=== PATIENT | male | born 1980 | race Caucasian/White ===

== ENCOUNTER 2016-07-10 12:41 | Emergency (ER) | payer BC, OTHER ==
--- NOTE | 2016-07-10 13:34 | ERNOTE ---
Abdominal HPI - General Chief Complaint: Abdominal Pain Time Seen by Provider: 07/10/16 13:31 Source: patient - Immun/Allergies/Home Medications Immunizatons: IMMUNIZATION HX Immunizations Up to Date Yes History of Influenza Vaccine Yes Hx Pneumococcal Vaccination No Allergies/Adverse Reactions: Allergies No Known Allergies Allergy (Verified 07/10/16 13:06) Home Medications: HOME MEDICATIONS HYDROcodone/ACETAMINOPHEN [[place] 5-325] 1 each PO Q4H #20 tablet 07/10/16 [Last Taken Unknown] Ondansetron [Zofran Odt] 4 mg PO Q6H PRN #20 tab 07/10/16 [Last Taken Unknown] Tamsulosin HCl [Flomax] 0.4 mg PO DAILY@1800 #7 capsule 07/10/16 [Last Taken Unknown] - History of Present Illness Narrative: Patient presents with left flank pain that radiates down into the left lower abdomen. He states that a similar to when he has had a previous kidney stone. He describes the pain as being somewhat crampy and places it at about a 6 or 7 out of 10. Timing: intermittent Quality: moderate, cramping Activities at Onset: none Associated Symptoms: Present: denies symptoms Prior Abdominal Problems: Present: similar symptoms - with a kidney stone Review of Systems - Review of Systems Constitutional: Present: See HPI EYE: Present: no symptoms reported ENT: Present: no symptoms reported Respiratory: Present: no symptoms reported Cardiology: Present: no symptoms reported Gastrointestinal/Abdominal: Present: no symptoms reported Genitourinary: Present: See HPI Musculoskeletal: Present: no symptoms reported Skin: Present: no symptoms reported Neurological: Present: no symptoms reported Endocrine: Present: no symptoms reported Hematologic/Lymphatic: Present: no symptoms reported Psych: Present: no symptoms reported - Patient's Past Medical History Patient History - Medical: Kidney stone Patient History - Cardiac/Respiratory: No pertinent hx Patient History - Cancer: No Hx of Cancer Patient History - Surgical Procedures: Other Patient History - Other: None - Social History Living Situations: spouse Abuse History: No History of abuse Psych History: No pertinent hx Smoking Status: Never smoker Have you smoked in the past 12 months: No Do you dip or chew tobacco: Yes Alcohol Use: occasionally Drug Use: none - Immunizations Immunizations Up to Date: Yes Hx Pneumococcal Vaccination: No History of Influenza Vaccine: Yes Physical Exam - Physical Exam General Appearance: Present: wd/wn, alert, moderate distress Eye Exam: Normal inspection: bilateral, PERRL: bilateral Ears, Nose, Throat: Present: normal ENT inspection, H, normal pharynx Neck: Present: normal inspection, nontender Respiratory: Present: no respiratory distress, normal breath sounds, no accessory muscle use, chest nontender, lungs clear Cardiovascular/Chest: Present: regular rate, rhythm, no murmur, normal peripheral pulses Gastrointestinal/Abdominal: Present: normal bowel sounds, nontender, nondistended, soft, no organomegaly Rectal Exam: Present: deferred Back Exam: Present: normal range of motion, CVA tenderness (L) Extremity Exam: Present: normal inspection, non-tender, no edema, normal range of motion Neurological Exam: Present: alert, oriented, normal mood/affect Skin Exam: Present: normal color, warm/dry Lymphatic Exam: Present: no adenopathy ED Progress - Results and Orders Patient's Lab Results:: I have reviewed the patient's lab results. - Vital Signs Patient's Vital Signs:: I have reviewed the patient's vital signs. Vital Signs: Vital Signs 07/10/16 07/10/16 13:00 13:07 Temperature 36.6 C 36.6 C Pulse Rate 62 62 Respiratory 18 18 Rate Blood Pressure 155/114 155/114 O2 Sat by Pulse 100 100 Oximetry - CT/Ultrasound CT/Ultrasound Narrative: CT results reviewed - Progress/Reassessment Chief Complaint: Abdominal Pain Progress:: Improved Plan - Plan Plan: Patient has a 2 mm stone in the distal UVJ area with mild left-sided hydroureter and hydronephrosis. Patient will be started on pain meds, antiemetics, and Flomax and he will follow up with his family physician this week and possibly urology if the stone does not clear. Departure - Departure Clinical Impression: Kidney stone on left side, Renal colic on left side Disposition: Home self-care Condition: Good Instructions: Renal Colic, [id number], Kidney Stones, [id number] Prescriptions: HYDROcodone/ACETAMINOPHEN [[place] 5-325] 1 each PO Q4H #20 tablet Ondansetron [Zofran Odt] 4 mg PO Q6H PRN #20 tab PRN Reason: Nausea And Vomiting Tamsulosin HCl [Flomax] 0.4 mg PO DAILY@1800 #7 capsule
[2016-07-10 13:37] LABS: Hematocrit 44.5 % (42.0-52.0); Hemoglobin 15.1 gm/dL (13.5-18.0); Mean Cell Volume 92.3 fl (78-100); Mean Corpuscular Hemoglobin 31.3 pg (27-31); Mean Corpuscular Hgb Conc 33.9 g/dl (32-36); Mean Platelet Volume 10.1 fl (6.0-9.5); Neutrophil # 5.9 K/mm3 (1.3-6.0); Neutrophil % 74.1 % (42-75.0); Platelet Count 243 K/mm3 (150-450); Red Blood Count 4.82 M/mm3 (4.7-6.0); Red Cell Distribution Width 12.6 % (11.5-14.0)
[2016-07-10] MEDS ORDERED: KETOROLAC TROMETHAMINE 30 MG/ML VIAL IM ONE (13:38)
[2016-07-10] MEDS ORDERED: KETOROLAC TROMETHAMINE 60 MG/2 ML VIAL IM ONE (13:38)
--- OUTSIDE RECORDS SUMMARY | 2016-07-10 13:42 | XMS REPORT | Continuity of Care Document ---
:1980 Author Organization [facility] [place] [address] Care Team Providers Name Role Phone Unavailable Primary Care Provider Unavailable Source Comments This disclosure is being made pursuant to the [facility] [employer] program and maynot contain all information available regarding this patient.[email or web address] Active Allergies and Adverse Reactions Not on File Current Medications Be aware that medications may not be up to date as of this document. Alwaysverify current medications with the patient. Not on file Active Problems Not on file Social History Tobacco Use Types Packs/Day Years Used Date Never Assessed Plan of Care Health Maintenance Due Date Last Done Comments Retired-Pertussis Vaccine Adult 1997 Retired-Tetanus Vaccine Adult 1997 Retired-INFLUENZA VACCINE 11/11/2014 Results from Last 3 Months Not on file
--- OUTSIDE RECORDS SUMMARY | 2016-07-10 13:42 | XMS REPORT | Continuity of Care Document ---
:1980 Author Organization [facility] ([facility]) [place] [address] Phone [phone] Care Team Providers Name Role Phone Provider, No-Primary Care Primary Care Provider Unavailable Source Comments This disclosure is being made pursuant to the Care Everywhere program, applicable federal and state laws, and may not contain all informaitonavailable regarding this patient.[facility] ([facility]) Active Allergies and Adverse Reactions No Known Allergies Current Medications Prescription Sig. Disp. Refills Start Date End Date Status fluticasone 50 Use 2 sprays in 16 g 6 12/23/2013 Active mcg/Actuation nasal each nostril daily. spray Indications: CHRONIC NON-ALLERGIC RHINITIS multivitamin tablet Take 1 Tab by mouth Active daily. nicotine 21-14-7 mg/24 Apply as directed 56 Patch 2 01/08/2015 Active hr transdermal patch accodring to kit package instructions. 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 Facial pain 12/23/2013 Nasal obstruction 12/23/2013 History of nasal septoplasty 12/23/2013 Immunizations Name Dates Previously Given Next Due Influenza, unspecified 01/11/2006 Social History Tobacco Use Types Packs/Day Years Used Date Never Smoker Smokeless Tobacco: Current User Chew Alcohol Use Drinks/Week oz/Week Comments Yes 1 Cans of beer Last Filed Vital Signs Vital Sign Reading Time Taken Blood Pressure 154/75 01/08/2015 10:10 AM CDT Pulse 70 01/08/2015 10:10 AM CDT Temperature 36.4 C (97.5 F) 01/08/2015 10:10 AM CDT Respiratory Rate 18 12/23/2013 8:14 AM CDT Height 1.829 m (6') 01/08/2015 10:10 AM CDT Weight 99 kg (218 lb 4.1 oz) 01/08/2015 10:10 AM CDT Body Mass Index 29.59 01/08/2015 10:10 AM CDT Oxygen Saturation - - Plan of Care Health Maintenance Due Date Last Done Comments Hepatitis B Vaccine (1 of 3 - Primary Series) 1978 Tdap Vaccine 1989 MMR Vaccine 1996 Td Vaccine 1996 Lipid Disorder Screening 05/07/2009 05/07/2004 Influenza Vaccine: Seasonal (#1) 10/12/2015 01/11/2006 Results from Last 3 Months Not on file
[2016-07-10 13:50] LABS: Albumin * 4.7 gm/dl (3.4-5.0); BUN/Creatinine Ratio 7.2 (9.0-21.6); Bilirubin, Total 0.6 mg/dL (0.0-1.1); Ca. Corrected For Albumin 8.4 mg/dL (8.4-10.2); Calcium * 9.3 mg/dL (7.9-10.9); Potassium 3.9 mmol/L (3.4-4.6); Total Protein 8.4 gm/dL (6.2-8.2)
[2016-07-10 13:54] LABS: Anion Gap 12.6 mmol/L (6.8-13.8); Carbon Dioxide 28.3 mmol/L (24-32.6)
[2016-07-10 14:16] LABS: Urine Appearance Clear; Urine Color Yellow
[2016-07-10 14:17] LABS: Urine Bacteria None Seen; Urine Bilirubin Negative (NEGATIVE); Urine Blood Negative /ul (NEGATIVE); Urine Ketone 5 mg/dL (NEGATIVE); Urine Nitrite Negative (NEGATIVE); Urine Protein Negative (NEGATIVE); Urine RBC None Seen /hpf (0-5); Urine Specific Gravity 1.025 SP.GR. (1.005-1.030); Urine WBC 0-5 /hpf (0-5); Urine pH 6.5 pH (5.0-7.0)
[2016-07-10 15:23] VITALS: BP 148/104
== END 2016-07-10 15:24 | disposition home or self-care (01) ==
LOC: ER 12:41
DX: N20.0 Calculus of kidney (principal); N23 Unspecified renal colic

== ENCOUNTER 2016-08-26 11:08 | Day surgery (SDC) | payer BC ==
[~2016-08-26 11:08] MED LIST: ACETAMINOPHEN WITH CODEINE 1 EACH TABLET PO PRN; MORPHINE SULFATE 2 MG/ML DISP.SYRIN IV PRN; ONDANSETRON HCL/PF 2 MG/ML VIAL IV PRN; RINGERS SOLUTION,LACTATED 1,000 ML IV PRN; ceFAZolin SODIUM 1 GM in DEXTROSE 5 % IN WATER 100 ML IV PRN; oxyCODONE HCL/ACETAMINOPHEN 1 TAB TABLET PO PRN
--- OUTSIDE RECORDS SUMMARY | 2016-08-26 11:11 | XMS REPORT | Continuity of Care Document ---
:1980 Author Organization [facility] ([facility]) Address [place] [address] Phone [phone] Care Team Providers Name Role Phone Provider, No-Primary Care Primary Care Provider Unavailable Source Comments This disclosure is being made pursuant to the Care Everywhere program, applicable federal and state laws, and may not contain all informaitonavailable regarding this patient.[facility] ([facility]) Active Allergies and Adverse Reactions No [...]
--- OUTSIDE RECORDS SUMMARY | 2016-08-26 11:11 | XMS REPORT | Continuity of Care Document ---
:1980 Author Organization [facility] [place] [address] Care Team Providers Name Role Phone Unavailable Primary Care Provider Unavailable Source Comments This disclosure is being made pursuant to the [employer] program and maynot contain all information available regarding this patient.[facility] Active Allergies and Adverse Reactions Not on [...]
[2016-08-26] MEDS ORDERED: RINGERS SOLUTION,LACTATED 1,000 ML IV ONE ×2 (11:55→13:40)
[2016-08-26 16:24] VITALS: BP 135/60
== END 2016-08-26 11:09 | disposition home or self-care (01) ==
LOC: AMB 11:08
PROVIDERS: ATTEND Urology
PROC: 0TC68ZZ Extirpation of Matter from Right Ureter, Via Natural or Artificial Opening Endoscopic (ICD-10-PCS; principal; 2016-08-26 12:00)
DX: N20.1 Calculus of ureter (principal); E66.9 Obesity, unspecified; Z68.27 Body mass index [BMI] 27.0-27.9, adult